=== PATIENT | female | born 1960 | race Caucasian/White ===

== ENCOUNTER 2019-04-06 16:20 | Emergency (ER) | payer OTHER ==
--- OUTSIDE RECORDS SUMMARY | 2019-04-06 16:22 | XMS REPORT | Clinical Summary ---
:1960 Author Organization [facility] Address [address] [place] [address] Care Team Providers Name Role Phone Ralf Torres MD Primary Care Provider Allergies Active Allergy Reactions Severity Noted Date Comments Morphine GI Intolerance High 02/04/2019 Medications Medication Sig Dispensed Refills Start Date End Date Status metoprolol tartrate Take 25 mg by 3 01/28/2019 Active (LOPRESSOR) 25 mg mouth 2 (two) tablet times a day. Active Problems Not on file Encounters Date Type Specialty Care Team Description 02/04/2019 Office Visit Obstetrics and Deejay Zuleta Breast cancer screening (Primary Dx); Gynecology MD Dalia Well woman exam with routine gynecological exam after 04/05/2018 Social History Tobacco Use Types Packs/Day Years Used Date Never Smoker Smokeless Tobacco: Never Used Alcohol Use Drinks/Week oz/Week Comments No Alcohol Habits Answer Date Recorded How often do you have a drink containing alcohol? Never 02/04/2019 How many drinks containing alcohol do you have on a typical Not asked day when you are drinking? How often do you have six or more drinks on one occasion? Not asked Sex Assigned at Date Recorded Not on file Job Start Date Occupation Industry Not on file Not on file Not on file Travel History Travel Start Travel End No recent travel history available. Last Filed Vital Signs Vital Sign Reading Time Taken Blood Pressure 124/84 02/04/2019 10:14 AM CDT Pulse 55 02/04/2019 10:14 AM CDT Temperature - - Respiratory Rate - - Oxygen Saturation - - Inhaled Oxygen Concentration - - Weight 88.5 kg (195 lb) 02/04/2019 10:14 AM CDT Height 165.1 cm (5' 5") 02/04/2019 10:14 AM CDT Body Mass Index 32.45 02/04/2019 10:14 AM CDT Plan of Treatment Health Maintenance Due Date Last Done Comments COLONOSCOPY SCREENING 2008 SHINGLES VACCINES (#1) 2008 INFLUENZA VACCINE 04/30/2019 BREAST CANCER SCREENING 07/11/2019 07/11/2017, 07/11/2017, 05/31/2016, Additional history exists Results Not on fileafter 04/05/2018 Advance Directives Patient has advance care planning documents on file. For more information, please contact:[place] [address]
[2019-04-06 17:01] LABS: Absolute Lymphocytes (CBC) 3.1 K/uL (0.7-4.9); Basophils % 0.9 % (0-1.3); Eosinophils % 4.3 % (0-4.4); Hematocrit 38.7 % (36.0-45.0); Lymphocytes % 33.2 % (15.3-44.8); Monocytes % 7.4 % (3.3-12.3); RBC Red Blood Cell Count 4.17 M/uL (3.86-4.86)
[2019-04-06 17:03] LABS: Protime INR 0.92
--- NOTE | 2019-04-06 17:17 | RAD REPORT ---
EXAM DESCRIPTION: Radha Single View04/06/2019 5:08 pm CLINICAL HISTORY: Chest pain COMPARISON: none FINDINGS: The lungs appear clear of acute infiltrate. The heart appears borderline enlarged IMPRESSION: No acute abnormalities displayed
[2019-04-06 17:32] LABS: ALT/SGPT 17 U/L (12-78); AST/SGOT 17 U/L (15-37); Albumin 3.9 g/dL (3.4-5.0); Alkaline Phosphatase 78 U/L (45-117); BUN Blood Urea Nitrogen 14 mg/dL (7-18); Bicarbonate 26 mmol/L (21-32); Bilirubin Direct < 0.1 mg/dL (0-0.2); Bilirubin Total 0.2 mg/dL (0.2-1.0); Glucose Level 127 mg/dL (74-106); Magnesium 2.2 mg/dL (1.8-2.4); NT PRO-BNP 68 pg/mL (<125); Potassium 3.7 mmol/L (3.5-5.1); Sodium Level 142 mmol/L (136-145); Troponin (Emerg Dept Use Only) < 0.02 ng/mL (0.0-0.045)
--- NOTE | 2019-04-06 18:13 | ER ---
Nurse's Notes [facility] Name: Saray Gonzalez Age: 58 yrs Sex: Female : 1960 Arrival Date: 04/06/2019 Time: 16:22 Bed 17 Private MD: Gary Torres C Diagnosis: Chest pain, unspecified Presentation: 04/06 16:28 Presenting complaint: Patient states: chest pain and upper back pain that began aa5 yesterday. Pt also reports palpitations and mild SOB. Transition of care: patient was not received from another setting of care. Onset of symptoms was March 2019. Risk Assessment: Do you want to hurt yourself or someone else? Patient reports no desire to harm self or others. Initial Sepsis Screen: Does the patient meet any 2 criteria? No. Patient's initial sepsis screen is negative. Does the patient have a suspected source of infection? No. Patient's initial sepsis screen is negative. Care prior to arrival: None. 16:28 Acuity: AMBERLY 3 aa5 16:28 Method Of Arrival: Ambulatory aa5 Historical: - Allergies: 16:29 NKDA; aa5 - Home Meds: 16:29 metoprolol tartrate 25 mg Oral tab 2 times per day [Active]; aa5 - PMHx: 16:29 Hypertension; aa5 - PSHx: 16:29 Hysterectomy; abd tumor removal; aa5 - Immunization history:: Flu vaccine is up to date. - Social history:: Smoking status: Patient/guardian denies using tobacco. - Ebola Screening: : No symptoms or risks identified at this time. Screenin:25 Abuse screen: Denies threats or abuse. Denies injuries from another. Nutritional aj screening: No deficits noted. Tuberculosis screening: No symptoms or risk factors identified. Fall Risk None identified. Assessment: 16:30 General: SEE TRIAGE NOTE. bp 18:25 General: Appears in no apparent distress. comfortable, Behavior is calm, cooperative, aj appropriate for age. Pain: Complains of pain in chest. Neuro: Level of Consciousness is awake, alert, obeys commands, Oriented to person, place, time, situation, Appropriate for age. Cardiovascular: Reports chest pain, Capillary refill < 3 seconds in bilateral fingers Patient's skin is warm and dry. Respiratory: Airway is patent Respiratory effort is even, unlabored, Respiratory pattern is regular, symmetrical. Derm: Skin is intact, is healthy with good turgor, Skin is pink, warm \T\ dry. normal. 18:37 Reassessment: PT D/C HOME AMBULATORY WITH FAMILY, DX WITH NONSPECIFIC CHEST PAIN. bp Vital Signs: 16:30 BP 120 / 86; Pulse 88; Resp 16 S; Temp 97.5(TE); Pulse Ox 99% on R/A; Weight 84.82 kg aa5 (R); Height 5 ft. 6 in. (167.64 cm) (R); Pain 6/10; 16:53 BP 117 / 84; Pulse 74; Resp 13; Temp 97.7(TE); Pulse Ox 96% on R/A; mh5 18:25 BP 104 / 81; Pulse 83; Resp 16; Pulse Ox 98% on R/A; aj 16:30 Body Mass Index 30.18 (84.82 kg, 167.64 cm) aa5 ED Course: 16:22 Patient arrived in ED. rg4 16:22 Gary Torres MD is Private Physician. rg4 16:28 Arm band placed on. aa5 16:29 Triage completed. aa5 16:33 Zeyad Honeycutt, RN is Primary Nurse. bp 16:44 Radiology exam delayed due to IV insertion attempt and/or patient not having az appropriate IV at this time. 16:49 EKG done, by senior manufacturing technician. dt2 16:51 Jordan Neff MD is Attending Physician. gs 16:51 Patient has correct armband on for positive identification. Placed in gown. Bed in low mh5 position. Call light in reach. Side rails up X 1. Adult w/ patient. Warm blanket given. compliance monitor on. Pulse ox on. NIBP on. 16:51 Initial lab(s) drawn, by nc, sent to lab. Inserted saline lock: 22 gauge in right 5 antecubital area, using aseptic technique. Blood collected. 16:52 Basic Metabolic Panel Sent. 5 16:52 CBC with Diff Sent. [facility] 16:52 LFT's Sent. [facility] 16:52 Magnesium Sent. [facility] 16:52 NT PRO-BNP Sent. [facility] 16:52 PT-INR Sent. [facility] 16:52 Troponin (emerg Dept Use Only) Sent. [facility] 17:10 XRAY Chest (1 view) In Process Unspecified. EDMS 18:12 Tang Garcia MD is Referral Physician. 18:25 No provider procedures requiring assistance completed. IV discontinued, intact, aj bleeding controlled, No redness/swelling at site. Pressure dressing applied. Patient maintains SpO2 saturation greater than 95% on room air. Administered Medications: 18:12 Drug: TORadol - Ketorolac 15 mg Route: IVP; Site: right antecubital; bp 18:38 Follow up: Response: No adverse reaction bp Outcome: 18:12 Discharge ordered by MD. 18:25 Discharged to home ambulatory, with family. aj 18:25 Condition: good 18:25 Discharge instructions given to patient, family, Instructed on discharge instructions, follow up and referral plans. Demonstrated understanding of instructions, follow-up care. 18:39 Patient left the ED. bp Signatures: Dispatcher [employer] EDShira Forde, RN RN Binta Fletcher RN RN [email or web address] Beth Marino 4 Lilly Benton 5 Jordan Neff MD MD gs Peltier, Brian, RN RN Fabiola Hinkle dt2 Saira Bradley
--- NOTE | 2019-04-06 18:13 | EDPHYS ---
Physician Documentation [facility] Name: Saray Gonzalez Age: 58 yrs Sex: Female : 1960 Arrival Date: 04/06/2019 Time: 16:22 Bed 17 Private MD: Gary Torres C ED Physician Jordan Neff HPI: 04/06 19:54 This 58 yrs old Female presents to ER via Ambulatory with complaints of Chest gs Pain, Back Pain, Palpitations. 19:54 The patient or guardian reports chest pain that is located primarily in the anterior gs chest wall. Onset: yesterday, last night. The pain does not radiate. Associated signs and symptoms: Pertinent positives: palpitations, Pertinent negatives: diaphoresis, headache, shortness of breath, vomiting. The chest pain is described as dull. Modifying factors: the symptoms are aggravated by movement, twisting torso. Severity of pain: At its worst the pain was moderate in the emergency department the pain is unchanged. Historical: - Allergies: 16:29 NKDA; aa5 - Home Meds: 16:29 metoprolol tartrate 25 mg Oral tab 2 times per day [Active]; aa5 - PMHx: 16:29 Hypertension; aa5 - PSHx: 16:29 Hysterectomy; abd tumor removal; aa5 - Immunization history:: Flu vaccine is up to date. - Social history:: Smoking status: Patient/guardian denies using tobacco. - Ebola Screening: : No symptoms or risks identified at this time. ROS: 19:54 All other systems are negative. gs Exam: 19:54 Head/Face: Normocephalic, atraumatic. Eyes: Pupils equal round and reactive to light, gs extra-ocular motions intact. Lids and lashes normal. Conjunctiva and sclera are non-icteric and not injected. Cornea within normal limits. Periorbital areas with no swelling, redness, or edema. ENT: Nares patent. No nasal discharge, no septal abnormalities noted. Tympanic membranes are normal and external auditory canals are clear. Oropharynx with no redness, swelling, or masses, exudates, or evidence of obstruction, uvula midline. Mucous membranes moist. Neck: Trachea midline, no thyromegaly or masses palpated, and no cervical lymphadenopathy. Supple, full range of motion without nuchal rigidity, or vertebral point tenderness. No Meningismus. Chest/axilla: Normal chest wall appearance and motion. Nontender with no deformity. No lesions are appreciated. Cardiovascular: Regular rate and rhythm with a normal S1 and S2. No gallops, murmurs, or rubs. Normal PMI, no JVD. No pulse deficits. Respiratory: Lungs have equal breath sounds bilaterally, clear to auscultation and percussion. No rales, rhonchi or wheezes noted. No increased work of breathing, no retractions or nasal flaring. Abdomen/GI: Soft, non-tender, with normal bowel sounds. No distension or tympany. No guarding or rebound. No evidence of tenderness throughout. Back: No spinal tenderness. No costovertebral tenderness. Full range of motion. Skin: Warm, dry with normal turgor. Normal color with no rashes, no lesions, and no evidence of cellulitis. MS/ Extremity: Pulses equal, no cyanosis. Neurovascular intact. Full, normal range of motion. Neuro: Awake and alert, GCS 15, oriented to person, place, time, and situation. Cranial nerves II-XII grossly intact. Motor strength 5/5 in all extremities. Sensory grossly intact. Cerebellar exam normal. Normal gait. 19:54 Constitutional: The patient appears alert, awake. 19:54 ECG was reviewed by the Attending Physician. Vital Signs: 16:30 BP 120 / 86; Pulse 88; Resp 16 S; Temp 97.5(TE); Pulse Ox 99% on R/A; Weight 84.82 kg aa5 (R); Height 5 ft. 6 in. (167.64 cm) (R); Pain 6/10; 16:53 BP 117 / 84; Pulse 74; Resp 13; Temp 97.7(TE); Pulse Ox 96% on R/A; mh5 18:25 BP 104 / 81; Pulse 83; Resp 16; Pulse Ox 98% on R/A; aj 16:30 Body Mass Index 30.18 (84.82 kg, 167.64 cm) aa5 MDM: 17:40 Patient medically screened. gs 19:54 Differential diagnosis: abnormal EKG, coronary artery disease chest wall pain. HEART gs Score: History: Slightly Suspicious (0), ECG: Non specific repolarization disturbance / LBTB / PM (1), Age: > 45 and < 65 years (1), Risk Factors: 1 or 2 risk factors (1), Troponin: < or = 1 x Normal Limit (0). Data reviewed: vital signs, nurses notes, lab test result(s), EKG, radiologic studies. ED course: PAIN ONLY WITH MOVEMENT NO DISTRESS NO REST PAIN DISCUSSED FINDINGS WILL DISCHARGE.. 04/06 16:33 Order name: Basic Metabolic Panel; Complete Time: 17:40 bp 04/06 16:33 Order name: CBC with Diff; Complete Time: 17:40 bp 04/06 16:33 Order name: LFT's; Complete Time: 17:40 bp 04/06 16:33 Order name: Magnesium; Complete Time: 17:40 bp 08 16:33 Order name: NT PRO-BNP; Complete Time: 17:40 bp 08 16:33 Order name: PT-INR; Complete Time: 17:40 bp 08 16:33 Order name: Troponin (emerg Dept Use Only); Complete Time: 17:40 bp 04/06 16:33 Order name: XRAY Chest (1 view); Complete Time: 17:40 bp 08 16:33 Order name: EKG; Complete Time: 16:34 bp 07/08 16:33 Order name: Cardiac monitoring; Complete Time: 17:09 bp /08 16:33 Order name: EKG - Nurse/Tech; Complete Time: 17:09 bp /08 16:33 Order name: IV Saline Lock; Complete Time: 16:52 bp 07/08 16:33 Order name: Labs collected and sent; Complete Time: 16:52 bp 08 16:33 Order name: O2 Per Protocol; Complete Time: 17:09 bp 08 16:33 Order name: O2 Sat Monitoring; Complete Time: 17:09 bp EC:54 Rate is 74 beats/min. Rhythm is regular. ND interval is normal. QRS interval is normal. gs T waves are Flattened. Clinical impression: NSR w/ Non-specific ST/T Changes. Interpreted by me. Administered Medications: 18:12 Drug: TORadol - Ketorolac 15 mg Route: IVP; Site: right antecubital; bp 18:38 Follow up: Response: No adverse reaction bp Disposition: 04/06/19 18:12 Discharged to Home. Impression: Chest pain, unspecified. - Condition is Stable. - Discharge Instructions: Nonspecific Chest Pain. - Medication Reconciliation Form, Thank You Letter, Antibiotic Education, Prescription Opioid Use form. - Follow up: Private Physician; When: 2 - 3 days; Reason: Re-evaluation by your physician. Follow up: Tang Garcia MD; When: 1 - 2 days; Reason: Re-evaluation by your physician. Signatures: Dispatcher [employer] EDNJ Binta Anderson RN RN aa5 Jordan Neff MD MD Zeyad Honeycutt RN RN bp Corrections: (The following items were deleted from the chart) 18:39 18:12 04/06/2019 18:12 Discharged to Home. Impression: Chest pain, unspecified. bp Condition is Stable. Forms are Medication Reconciliation Form, Thank You Letter, Antibiotic Education, Prescription Opioid Use. Follow up: Private Physician; When: 2 - 3 days; Reason: Re-evaluation by your physician. Follow up: Tang Garcia; When: 1 - 2 days; Reason: Re-evaluation by your physician.
[2019-04-06] MEDS ORDERED: KETOROLAC 30 MG/ML INJ ONE (18:23)
--- NOTE | 2019-04-07 08:14 | EKG ---
Test Date: 2019-04-06 Test Time: 16:37:08 Valve Machine Operator: MATT MEASUREMENT RESULTS: Intervals: Rate: 74 AR: 136 QRSD: 80 QT: 370 QTc: 410 Benton: P: 37 AR: 136 QRS: -16 T: -17 INTERPRETIVE STATEMENTS: Normal sinus rhythm with sinus arrhythmia Moderate voltage criteria for LVH, may be normal variant Nonspecific ST and T wave abnormality Abnormal ECG Compared to ECG 11/06/2005 02:42:00 Left ventricular hypertrophy now present ST (T wave) deviation now present T-wave abnormality no longer present Electronically Signed On 04-07-19 08:11:45 CDT by Masoud James
== END 2019-04-06 18:39 | disposition home or self-care (01) ==
LOC: ER 16:20
DX: R07.9 Chest pain, unspecified (principal); R00.2 Palpitations; I10 Essential (primary) hypertension
CPT/HCPCS: 36415; 71045; 80048; 80076; 83735; 83880; 84484; 85025; 85610; 93005; 96374; 99285